=== PATIENT | male | born 1955 | race Caucasian/White ===

== ENCOUNTER 2022-03-12 14:57 | Emergency (ER) | payer MEDICARE ==
[2022-03-12 16:21] LABS: #Basophils 0.1 thou/uL (0.0-0.2); #Eosinphils 0.1 thou/uL (0.0-0.7); #Lymphocytes 2.4 thou/uL (1.20-3.40); #Monocytes 0.7 thou/uL (0.11-0.59); #Neutrophils 5.2 thou/uL (1.40-6.50); %Basophils 0.7 % (0.0-1.0); %Eosinophils 0.7 % (0.0-10.0); %Lymphocytes 28.5 % (21.0-51.0); %Monocytes 7.9 % (0.0-10.0); %Neutrophils 62.2 % (42.0-75.0); Hemoglobin 14.8 g/dL (14.0-18.0); Mean Corpuscular HGB CONC 34.2 g/dL (32.0-36.0); Mean Corpuscular Hemoglobin 32.2 pg (27.0-31.0); Mean Platelet Volume 7.8 fL (7.4-10.4); Platelet Count 211 10x3/uL (130-400); White Blood Cell (WBC) Count 8.3 10x3/uL (4.8-10.8)
[2022-03-12 16:39] LABS: ALT (SGPT) 31 U/L (8-55); AST (SGOT) 21 U/L (5-34); Albumin 4.4 g/dL (3.4-4.8); Alkaline Phosphatase 63 U/L (40-110); Anion Gap 13 mmol/L (10-20); BUN (Urea Nitrogen) 16 mg/dL (8.4-25.7); Bilirubin, Total 0.7 mg/dL (0.2-1.2); Calc. Creatinine Clearance 0 mL/min (70-130); Calcium 9.3 mg/dL (7.8-10.44); Carbon Dioxide 25 mmol/L (23-31); Chloride 106 mmol/L (98-107); Estimated GFR 61; Globulin 2.6 g/dL (2.4-3.5); Glucose 92 mg/dL (80-115); Lipase 19 U/L (8-78); Potassium 4.4 mmol/L (3.5-5.1); Sodium 140 mmol/L (136-145)
== END 2022-03-12 20:41 | disposition home or self-care (01) ==
LOC: ERS 14:57
DX: R07.89 Other chest pain (principal); I10 Essential (primary) hypertension; E78.5 Hyperlipidemia, unspecified; Z79.899 Other long term (current) drug therapy
CPT/HCPCS: 36415; 71045; 80053; 83690; 84484; 85025; 93005; 94760

== ENCOUNTER 2022-08-01 11:30 | Observation (INO) | payer MEDICARE, OTHER ==
[2022-08-01 12:28] LABS: #Eosinphils 0.1 thou/uL (0.0-0.7); #Monocytes 0.7 thou/uL (0.11-0.59); #Neutrophils 4.2 thou/uL (1.40-6.50); %Basophils 0.4 % (0.0-1.0); %Eosinophils 1.2 % (0.0-10.0); %Lymphocytes 30.3 % (21.0-51.0); %Monocytes 9.6 % (0.0-10.0); %Neutrophils 58.2 % (42.0-75.0); Hemoglobin 14.8 g/dL (14.0-18.0); Mean Corpuscular HGB CONC 34.9 g/dL (32.0-36.0); Mean Corpuscular Hemoglobin 31.3 pg (27.0-31.0); Mean Corpuscular Volume 89.6 fl (78.0-98.0); Platelet Count 222 10x3/uL (130-400); RBC Distribution Width 12.7 % (11.5-14.5); Red Blood Cell (RBC) Count 4.73 mill/uL (4.70-6.10); White Blood Cell (WBC) Count 7.3 10x3/uL (4.8-10.8)
[2022-08-01 12:30] LABS: ALT (SGPT) 30 U/L (8-55); AST (SGOT) 22 U/L (5-34); Albumin 4.4 g/dL (3.4-4.8); Alkaline Phosphatase 69 U/L (40-110); Anion Gap 14 mmol/L (10-20); BUN (Urea Nitrogen) 12 mg/dL (8.4-25.7); Bilirubin, Total 0.9 mg/dL (0.2-1.2); Calc. Creatinine Clearance 0 mL/min (70-130); Calcium 9.8 mg/dL (7.8-10.44); Carbon Dioxide 24 mmol/L (23-31); Chloride 105 mmol/L (98-107); Estimated GFR 61; Globulin 2.7 g/dL (2.4-3.5); Glucose 107 mg/dL (80-115); Potassium 4.1 mmol/L (3.5-5.1); Protein, Total 7.1 g/dL (5.8-8.1); Sodium 139 mmol/L (136-145)
[2022-08-01] MEDS ORDERED: Ondansetron PF 4 MG/2 ML Vial IVP PRN (13:42)
[2022-08-01] MEDS ORDERED: Acetaminophen 325 MG TAB PO PRN (13:42)
[2022-08-01] MEDS ORDERED: Ondansetron ODT 4 MG TAB PO PRN (13:42)
[2022-08-01] MEDS ORDERED: Aspirin 325 mg Enteric Coated Tablet PO SCH (13:45)
[2022-08-01 15:31] LABS: Magnesium 2.3 mg/dL (1.6-2.6)
[2022-08-01 15:38] LABS: Troponin I Less than 0.010 ng/mL (< 0.028)
[2022-08-01 16:00] VITALS: BMI 29.4
[2022-08-01 19:00] LABS: Troponin I Less than 0.010 ng/mL (< 0.028)
[2022-08-02 04:33] LABS: #Eosinphils 0.2 thou/uL (0.0-0.7); #Monocytes 0.8 thou/uL (0.11-0.59); #Neutrophils 3.6 thou/uL (1.40-6.50); %Basophils 0.6 % (0.0-1.0); %Eosinophils 2.5 % (0.0-10.0); %Lymphocytes 34.7 % (21.0-51.0); %Monocytes 11.4 % (0.0-10.0); %Neutrophils 50.4 % (42.0-75.0); Hemoglobin 13.8 g/dL (14.0-18.0); Mean Corpuscular HGB CONC 32.5 g/dL (32.0-36.0); Mean Corpuscular Hemoglobin 30.2 pg (27.0-31.0); Mean Platelet Volume 10.1 fL (7.4-10.4); Platelet Count 203 10x3/uL (130-400); RBC Distribution Width 13.1 % (11.5-14.5); Red Blood Cell (RBC) Count 4.57 mill/uL (4.70-6.10); White Blood Cell (WBC) Count 7.1 10x3/uL (4.8-10.8)
[2022-08-02 04:53] LABS: Anion Gap 11 mmol/L (10-20); BUN (Urea Nitrogen) 14 mg/dL (8.4-25.7); Calc. Creatinine Clearance 81 mL/min (70-130); Calcium 9.2 mg/dL (7.8-10.44); Carbon Dioxide 25 mmol/L (23-31); Chloride 109 mmol/L (98-107); Estimated GFR 61; Glucose 105 mg/dL (80-115); Sodium 141 mmol/L (136-145)
[2022-08-02 07:57] VITALS: TEMP 97.9
[2022-08-02] MEDS ORDERED: Aspirin Chewable 81 MG TAB PO SCH (09:00)
[2022-08-02 12:18] VITALS: BP 129/68
== END 2022-08-02 15:17 | disposition home or self-care (01) ==
LOC: ERS 11:30 → 2SW 14:43
PROVIDERS: ADMIT Internal Medicine; ATTEND Internal Medicine
DX: R07.9 Chest pain, unspecified (principal); I10 Essential (primary) hypertension; E78.5 Hyperlipidemia, unspecified; I08.8 Other rheumatic multiple valve diseases; Z79.82 Long term (current) use of aspirin; Z79.899 Other long term (current) drug therapy
CPT/HCPCS: 71045; 78452; 80048; 83735; 84484 ×2; 85025; 93005; 93017; 93306; 94760; 96372; 99285; A9500; G0378 ×3; 36415; 80053; 84443; J1650